=== PATIENT | female | born 1990 | race American Indian/Alaskan Native ===

== ENCOUNTER 2018-01-04 22:46 | Emergency (ER) | payer BC, MEDICAID ==
[2018-01-04 23:08] VITALS: BMI 28.6
[2018-01-04 23:10] VITALS: TEMP 98.1; O2SAT 98
[2018-01-04] MEDS ORDERED: Sodium Chloride 0.9% 1,000 ML IV STA (23:38)
--- NOTE | 2018-01-04 23:38 | ED PDOC ---
Arrival/HPI - General Chief Complaint: Abdominal Pain Time Seen by Provider: 01/04/18 23:30 Historian: Patient - History of Present Illness Narrative History of Present Illness (Text): 01/04/18 23:30 27 y/o female, pmh including UTI, allergic to nsaid, c/o abnormal period started about 1 week ago. Pt. stated that she took plan B about 3 weeks ago, her period ended about 10 days ago, started new period cycle about 7 days ago, on and off bleeding, mild aching pain, no urinary symptoms, no fever or chills, no fatigue or night sweat, no rash, no dizziness, no change in vision, no other medical or psychological complaints. Past Medical History - Provider Review Nursing Documentation Reviewed: Yes - Infectious Disease Hx of Infectious Diseases: None - Tetanus Immunization Tetanus Immunization: Unknown - Pulmonary Hx Asthma: Yes - Psychiatric Hx Psychophysiologic Disorder: (felling of being overwhelmed) Hx Anxiety: Yes Hx Depression: Yes Hx Substance Use: No - Surgical History Hx Orthopedic Surgery: Yes (knee) - Anesthesia Hx Anesthesia: No - Suicidal Assessment Feels Threatened In Home Enviroment: No Family/Social History - Physician Review Nursing Documentation Reviewed: Yes Family/Social History: Unknown Family HX Smoking Status: Never Smoked Hx Alcohol Use: No Hx Substance Use: No Allergies/Home Meds Allergies/Adverse Reactions: Allergies ibuprofen Allergy (Verified 01/04/18 23:09) SHORTNESS OF BREATH peanut Allergy (Verified 01/04/18 23:09) ANAPHYLAXIS Home Medications: Home Meds Medication Instructions Recorded Confirmed Albuterol HFA [Ventolin HFA 90 1 puff INH PRN PRN 01/04/18 01/04/18 mcg/actuation (8 g)] Review of Systems - Review of Systems Constitutional: absent: Fatigue, Fevers Eyes: absent: Vision Changes ENT: absent: Hearing Changes Respiratory: absent: SOB, Cough Cardiovascular: absent: Chest Pain Gastrointestinal: absent: Abdominal Pain, Nausea, Vomiting Genitourinary Female: Vaginal Bleeding Musculoskeletal: absent: Arthralgias, Back Pain Skin: absent: Rash, Pruritis Psychiatric: absent: Anxiety, Depression, Suicidal Ideation Physical Exam Vital Signs Reviewed: Yes Vital Signs Temp Pulse Resp BP Pulse Ox 01/04/18 23:09 98.1 F 75 18 147/86 98 Temperature: Afebrile Blood Pressure: Normal Pulse: Regular Respiratory Rate: Normal Appearance: Positive for: Well-Appearing, Non-Toxic, Comfortable Pain Distress: Mild Mental Status: Positive for: Alert and Oriented X 3 - Systems Exam Head: Present: Atraumatic, Normocephalic Pupils: Present: PERRL Extroacular Muscles: Present: EOMI Conjunctiva: Present: Normal Mouth: Present: Moist Mucous Membranes Neck: Present: Normal Range of Motion Respiratory/Chest: Present: Clear to Auscultation, Good Air Exchange. No: Respiratory Distress, Accessory Muscle Use Cardiovascular: Present: Regular Rate and Rhythm, Normal S1, S2. No: Murmurs Abdomen: No: Tenderness, Distention, Peritoneal Signs, Rebound, Guarding Back: Present: Normal Inspection Upper Extremity: Present: Normal Inspection. No: Cyanosis, Edema Lower Extremity: Present: Normal Inspection. No: Edema Neurological: Present: GCS=15, CN II-XII Intact, Speech Normal Skin: Present: Warm, Dry, Normal Color. No: Rashes Psychiatric: Present: Alert, Oriented x 3, Normal Insight, Normal Concentration Medical Decision Making ED Course and Treatment: 01/04/18 23:41 Differential: Oligomenorrhea vs. Dysmenorrhea vs. Ectopic vs. Miscarriage -Labs -IVF/tylenol -observe and reassess 01/05/18 00:35 -Beta HCG is negative for -Labs are non-significant -Abnormal period likely from the plan B, pain resolved. -Discussed with the patient to follow up -Discharge home with education on take tylenol as needed, bed rest, follow up with your own pmd and obgyn within 2 days, return to the ER for any new or worsening signs or symptoms - Lab Interpretations Lab Results: 01/04/18 23:45 01/04/18 23:45 Lab Results 01/04/18 23:45: WBC 9.9, RBC 4.89, Hgb 10.5 L, Hct 34.1 L, MCV 69.7 L, MCH 21.5 L, MCHC 30.8 L, RDW 15.8 H, Plt Count 378, MPV 9.2, Gran % 65.1, Lymph % (Auto) 27.7, [place] % (Auto) 5.0, Eos % (Auto) 1.7, Baso % (Auto) 0.5, Gran # 6.47, Lymph # (Auto) 2.8, [place] # (Auto) 0.5, Eos # (Auto) 0.2, Baso # (Auto) 0.05 01/04/18 23:45: Beta HCG, Quant < 2.39 01/04/18 23:45: Sodium 139, Potassium 3.8, Chloride 103, Carbon Dioxide 25, Anion Gap 14, BUN 13, Creatinine 0.6 L, Est GFR ( Amer) > 60, Est GFR ( Non-Af Amer) > 60, Random Glucose 99, Calcium 8.8, Total Bilirubin 0.2, AST 26, ALT 21, Alkaline Phosphatase 78, Total Protein 7.4, Albumin 4.1, Globulin 3.3, Albumin/Globulin Ratio 1.3 I have reviewed the lab results: Yes - Medication Orders Current Medication Orders: Sodium Chloride (Sodium Chloride 0.9%) 1,000 mls @ 999 mls/hr IV .Q1H1M STA Stop: 01/05/18 00:38 Last Admin: 01/04/18 23:54 Dose: 999 mls/hr eMAR Start Stop Document 01/04/18 23:54 IT (Rec: 01/04/18 23:54 [place] [facility] [id number] Intravenous Solution Start Date 01/04/18 Start Time 23:54 Discontinued Medications Acetaminophen (Tylenol 325mg Tab) 650 mg PO STAT STA Stop: 01/04/18 23:40 Last Admin: 01/04/18 23:54 Dose: Not Given Non-Admin Reason: Patient Refused - PA / [employer] / Resident Statement / has reviewed & agrees with the documentation as recorded. Disposition/Present on Arrival - Present on Arrival Any Indicators Present on Arrival: No History of DVT/PE: No History of Uncontrolled Diabetes: No Urinary Catheter: No History of Decub. Ulcer: No History Surgical Site Infection Following: None - Disposition Have Diagnosis and Disposition been Completed?: Yes Diagnosis: Dysmenorrhea, Oligomenorrhea Disposition: HOME/ ROUTINE Disposition Time: 00:36 Patient Plan: Discharge Condition: IMPROVED Additional Instructions: Discharge home with education on take tylenol as needed, bed rest, follow up with your own pmd and obgyn within 2 days, return to the ER for any new or worsening signs or symptoms Referrals: Christopher Snow MD [Primary Care Provider] - Follow up with primary Scooby Gorman DO [Staff Provider] - Follow up with primary Forms: WORK NOTE
[2018-01-05 00:05] LABS: BASO # 0.05 K/mm3 (0.0-2.0); BASO % 0.5 % (0.0-3.0); EOS # 0.2 (0.0-0.7); EOS % 1.7 % (1.5-5.0); GRAN # 6.47 (1.4-6.5); GRAN % 65.1 % (50.0-68.0); HEMOGLOBIN 10.5 g/dL (12.0-16.0); LYMPH # 2.8 (1.2-3.4); LYMPH % 27.7 % (22.0-35.0); MEAN CELL VOLUME 69.7 fl (80.0-105.0); MEAN CORPUSCULAR HEMOGLOBIN 21.5 pg (25.0-35.0); MEAN CORPUSCULAR HGB CONC 30.8 g/dl (31.0-37.0); MEAN PLATELET VOLUME 9.2 fl (7.0-11.0); MONO # 0.5 (0.1-0.6); RBC 4.89 10^6/uL (3.5-6.1); RED CELL DISTRIBUTION WIDTH 15.8 % (11.5-14.5); WHITE BLOOD COUNT 9.9 10^3/ul (4.5-11.0)
[2018-01-05 00:12] LABS: ALB/GLOB RATIO 1.3 (1.1-1.8); ALBUMIN 4.1 g/dL (3.0-4.8); ALT/SGPT 21 U/L (7-56); AST/SGOT 26 U/L (14-36); BLOOD UREA NITROGEN 13 mg/dL (7-21); CALCIUM 8.8 mg/dL (8.4-10.5); GFR AFRICAN-AMERICAN > 60; GFR NON-AFRICAN AMERICAN > 60
[2018-01-05 01:12] VITALS: BP 138/82; PULSE 72; RESP 17
== END 2018-01-05 01:11 | disposition home or self-care (01) ==
LOC: ED 22:46
DX: N91.5 Oligomenorrhea, unspecified (principal); N94.6 Dysmenorrhea, unspecified
CPT/HCPCS: 80053; 84702; 85025; 99283; J7030